=== PATIENT | male | born 1955 | race Caucasian/White ===

== ENCOUNTER 2025-09-20 07:47 | Day surgery (SDC) | payer MEDICARE, BC ==
[~2025-09-20] VITALS: Ht 167.6 cm; Wt 75.0 kg
[~2025-09-20 07:47] MED LIST: DILANTIN100 MG PO; IBLOOD GLUCOSE TEST STRIP 1 EA TEST VI PRN; LACTATED RINGER'S 1,000 ML IV SCH; LEVOTHYROXINE125 MCG PO; LIDOCAINE HCL 1% 5 ML SDV INJ ONE; LIDOCAINE HCL 4% 50 ML BTL TOP SCH; LIPITOR40 MG PO; MIDAZOLAM HCL 5 MG/5 ML VIAL IV PRN; NAPROXEN500 MG PO; PANTOPRAZOLE SO40 MG PO; fentaNYL citrate 100 MCG/2 ML VIAL IV PRN
[2025-09-20] MEDS ORDERED: CARBAMAZEPINE200 MG PO (08:01)
[2025-09-20 08:11] VITALS: BP 126/71
--- NOTE | 2025-09-20 08:14 | NUR ---
KEVIN QUICK IS SHOE LACER.
[2025-09-20] MEDS ORDERED: MIDAZOLAM HCL 5 MG/5 ML VIAL ONE (08:20)
[2025-09-20] MEDS ORDERED: fentaNYL citrate 100 MCG/2 ML VIAL ONE (08:20)
--- NOTE | 2025-09-20 09:07 | NUR ---
09/20/25 0907 Sheets,Sophy 0857 PT ARRIVED TO PACU ON 2L VIA MASK, PT WAKES TO TACTILE STIMULI AND IS REORIENTED TO PACU. PT EASILY FALLS BACK TO SLEEP WITH SNORING NOTED. 904 PT WAKES OFF AND ON, SNORING NOTED IN BETWEEN.
[2025-09-20 09:33] VITALS: BP 112/79
--- NOTE | 2025-09-21 11:20 | OR ---
[facility] [address] [place], [place] [address] Signed DATE OF OPERATION: 09/20/2025 SURGEON: Mike Dejesus MD PREOPERATIVE DIAGNOSIS: History of Joshi's esophagus. POSTOPERATIVE DIAGNOSIS: Small hiatal hernia and Joshi's esophagus without evidence of neoplasm. PROCEDURE: Esophagogastroduodenoscopy with biopsy. ANESTHESIA: Intravenous sedation, fentanyl 100 mcg, and Versed 4 mg. INDICATION: This 70-year-old man is a patient of John Olguin and underwent upper endoscopy in the [facility] three years ago where he was identified as having Joshi's epithelium. A surveillance upper endoscopy was recommended in this time frame. I did perform colonoscopy in 2017, which showed only hyperplastic polyp. He continues to be treated with PPI medication pantoprazole as mild cervical dysphagia and episodic cough suggestive of minimal aspiration. He is admitted to undergo surveillance upper endoscopy on the basis of his Joshi's esophagus. He understands the risk of bleeding, infection, and perforation. FINDINGS: Indeed, there was Joshi's epithelium. There was no sign of stricture or neoplasm formation. There was a small hiatal hernia. Esophagus otherwise was normal as was the stomach and duodenum. CLOtest was negative. DESCRIPTION OF PROCEDURE: The patient was brought to the endoscopy suite and placed in lateral decubitus position, given intravenous sedation to the point of slurred speech and nystagmus. A bite block was placed. The Olympus video upper endoscope was passed in the hypopharynx. The vocal cords were normal. Scope was advanced into the esophagus without problem throughout its length. It was normal except in the very distal portion where Joshi's epithelium was quite obvious. The scope was passed to the stomach, which was insufflated with air. Rugal folds were normal. Antrum was normal. Pylorus was normal. Scope was passed through into the duodenum. It was normal. Biopsies were obtained to assess for celiac Electronically Signed By: MIKE DEJESUS MD 09/21/25 9044 PATIENT NAME: ALICIA BROWNE OPERATIVE REPORT DATE OF : 53 REPORT #: [id number] PHYSICIAN: MIKE DEJESUS MD PCP: JOHN OLGUIN PA-C REPORT IS CONFIDENTIAL AND NOT TO BE RELEASED WITHOUT AUTHORIZATION [facility] [address] [place], [place] [address] Signed disease. The scope was withdrawn and biopsies taken of the antrum for YUE and pathologic testing. Retroflexed view showed a poor flap valve and small hiatal hernia. Scope was straightened and withdrawn to the distal esophagus and narrow band imaging employed. Joshi's epithelium was quite obvious. Various islands of normal mucosa interspersed with Joshi's epithelium was noted. Multiple biopsies were obtained. Scope was then withdrawn and midesophageal biopsies were obtained as well, though there was no evidence of Joshi's there. Further withdrawal showed no other abnormalities. Scope was removed. The patient was taken to recovery room in good condition. CONCLUDING DIAGNOSIS: Joshi's esophagus. PLAN: Recommend repeat upper endoscopy in three years providing current biopsy showed no dysplasia or other adverse findings. Should continue with PPI medication. Consideration will be made for anti-reflux operation should symptoms be poorly controlled with medication. MD MONICA Qureshi/MODL /[id number] cc: JUAN Duke Copies: ~ Electronically Signed By: MIKE DEJESUS MD 09/21/25 1120 PATIENT NAME: ALICIA BROWNE OPERATIVE REPORT DATE OF : 53 REPORT #: [id number] PHYSICIAN: MIKE DEJESUS MD PCP: JOHN OLGUIN PA-C REPORT IS CONFIDENTIAL AND NOT TO BE RELEASED WITHOUT AUTHORIZATION
--- NOTE | 2025-09-23 18:27 | PATH ---
[facility] [address] [place], [place] [address] Signed SPECIMEN(S): A DUODENAL BIOPSY SPECIMEN(S): B ANTRUM BIOPSY SPECIMEN(S): C DISTAL ESOPHAGEAL BIOPSY SPECIMEN(S): D MID ESOPHAGEAL BIOPSY SPECIMEN SOURCE: A. DUODENAL BIOPSY B. ANTRUM BIOPSY C. DISTAL ESOPHAGEAL BIOPSY D. MID ESOPHAGEAL BIOPSY CLINICAL HISTORY: History of Joshi's esophagus/Joshi's esophagus A-D) biopsy FINAL PATHOLOGIC DIAGNOSIS: A. Duodenum, biopsy: - Duodenal mucosa with no villous abnormality identified. - Negative for acute, chronic, and granulomatous inflammation. - Negative for dysplasia and malignancy. B. Stomach, antrum, biopsy: - Superficial sampling of non-acid secreting gastric mucosa. - Negative for chronic, acute, and active inflammation. - No H. pylori-like organisms identified on routine HE-stained histologic sections. - Negative for intestinal metaplasia, dysplasia, and malignancy. C. Distal esophagus, biopsy: - Gastroesophageal junctional-type mucosa with intestinal metaplasia (incomplete type); consistent with Joshi's esophagus. - Reactive epithelial cell changes are present. - Negative for dysplasia and malignancy. D. Mid-esophagus, biopsy: - Stratified squamous esophageal mucosa with slight congestion and rete peg vessels. - Negative for acute, chronic, and eosinophilic inflammation. - Negative for dysplasia and malignancy. SDL MICROSCOPIC EXAMINATION: Histologic sections of all submitted blocks are examined by light microscopy. These findings, together with the gross examination, support the pathologic PATIENT NAME: ALICIA BROWNE PATHOLOGY DATE OF : 53 REPORT #: [id number] PHYSICIAN: LASHAWN DIXON PCP: JOHN RODRIGUEZ PA-C REPORT IS CONFIDENTIAL AND NOT TO BE RELEASED WITHOUT AUTHORIZATION [facility] [address] [place], [place] [address] Signed diagnosis. GROSS DESCRIPTION: A. The specimen, labeled and designated "Chanell, duodenal biopsy," is received in formalin and consists of two woodall soft tissue fragments, ranging from 0.2-0.3 cm. Entirely submitted in (A1). B. The specimen, labeled and designated "Chanell, antrum biopsy," is received in formalin and consists of two woodall soft tissue fragments, ranging from 0.2-0.4 cm. Entirely submitted in (B1). C. The specimen, labeled and designated "Chanell, distal esophageal biopsy," is received in formalin and consists of eight woodall soft tissue fragments, ranging from 0.1-0.4 cm. Entirely submitted in (C1). D. The specimen, labeled and designated "Chanell, mid esophageal biopsy," is received in formalin and consists of two woodall soft tissue fragments, ranging from 0.3-0.6 cm. Entirely submitted in (D1). AB (under the direct supervision of a pathologist) The Gross Description was prepared using a voice recognition system. The report was reviewed for accuracy; however, sound-alike word errors, addition and/or deletions may occur. If there are any questions about this report, please contact Client Services. ADDITIONAL NOTES: Immunohistochemical and/or in situ hybridization studies if performed in this case included appropriate positive controls that reacted as expected. This test was developed and its performance characteristics determined by [facility]. It has not been cleared or approved by the U.S. Food and Drug Administration. The FDA has determined that such clearance or approval is not necessary. This test is used for clinical purposes. It should not be regarded as investigational or for research. [facility] is certified under the Clinical Laboratory Improvement Amendments of 1988 (CLIA) as qualified to perform high complexity clinical laboratory testing. PERFORMING LABORATORY: Technical component was performed by [facility], [address] [place] [id number] (CLIA# [id number]). [facility], [address] [place] [phone] (CLIA#: [id number]). PATIENT NAME: ALICIA BROWNE PATHOLOGY DATE OF : 53 REPORT #: [id number] PHYSICIAN: LASHAWN DIXON PCP: JOHN RODRIGUEZ PA-C REPORT IS CONFIDENTIAL AND NOT TO BE RELEASED WITHOUT AUTHORIZATION [facility] [address] [place] [id number] Signed Diagnostician: Malena Diaz MD Pathologist Electronically Signed 09/23/2025 Copies: ~ PATIENT NAME: ALICIA BROWNE PATHOLOGY DATE OF : 53 REPORT #: [id number] PHYSICIAN: LASHAWN DIXON PCP: JOHN RODRIGUEZ PA-C REPORT IS CONFIDENTIAL AND NOT TO BE RELEASED WITHOUT AUTHORIZATION
== END 2025-09-20 09:40 | disposition home or self-care (01) ==
LOC: OPS 07:47 → DS 07:48 → OPS 08:30 → DS 11:00 → OPS 12:00
PROVIDERS: ATTEND Surgery
PROC: 0DB68ZX Excision of Stomach, Via Natural or Artificial Opening Endoscopic, Diagnostic (ICD-10-PCS; 2025-09-20)
PROC: 0DB58ZX Excision of Esophagus, Via Natural or Artificial Opening Endoscopic, Diagnostic (ICD-10-PCS; 2025-09-20)
PROC: 0DB98ZX Excision of Duodenum, Via Natural or Artificial Opening Endoscopic, Diagnostic (ICD-10-PCS; principal; 2025-09-20 08:30)
DX: K22.70 Barrett's esophagus without dysplasia (principal); K44.9 Diaphragmatic hernia without obstruction or gangrene; Z86.0100 Personal history of colon polyps, unspecified; I10 Essential (primary) hypertension; E03.9 Hypothyroidism, unspecified; Z79.890 Hormone replacement therapy; Z79.899 Other long term (current) drug therapy
CPT/HCPCS: 99153; G0500; J2250; J3010; J7121